=== PATIENT | male | born 1950 | race Two or more races ===

== ENCOUNTER 2020-06-27 17:37 | Emergency (ER) | payer MEDICAID, OTHER ==
[~2020-06-27] VITALS: Ht 167.6 cm; Wt 73.2 kg
--- NOTE | 2020-06-27 18:40 | NUR ---
cc of laeft nare bleeding for most of afternoon. No bleeding at this time bp wnl reports happend every winter Reviewed ways to keep nares moist
[2020-06-27] MEDS ORDERED: OXYMETAZOLINE NASAL SPRAY 0.05%,30ML ONE (18:52)
[2020-06-27] MEDS ORDERED: OXYMETAZOLINE NASAL SPRAY 0.05%, 15ML NAS ONE (19:00)
[2020-06-27 19:06] VITALS: BP 152/79
== END 2020-06-27 19:08 | disposition home or self-care (01) ==
LOC: ED 18:55
DX: R04.0 Epistaxis (principal); I10 Essential (primary) hypertension
CPT/HCPCS: 99281